=== PATIENT | female | born 1975 | race Two or more races ===

== ENCOUNTER 2024-07-22 06:45 | Day surgery (SDC) | payer MEDICAID, SELFPAY ==
[2024-07-20 14:15] LABS: HCG Qualitative,Urine Negative
[2024-07-21 13:33] VITALS: BMI 22.6
[2024-07-22] VITALS (10 sets, daily range): BP systolic 97–133; BP diastolic 55–80; PULSE 57–81; RESP 13–22; TEMP 36.2–36.7; O2SAT 96–100; BMI 21.7
[2024-07-22] MEDS: SODIUM CHLORIDE 0.9% 500 ML 500 ML 125 ML IV (07:26)
[2024-07-22] MEDS: DiphenhydrAMINE INJ 50 MG/ML VIAL 25 MG IV (07:27)
[2024-07-22] MEDS: fentaNYL CIT INJ 50 mCg/ML AMP 2ML (ASD USE ONLY) IV (07:28)
[2024-07-22] MEDS: LIDOCAINE JELLY 2% (Urojet) 10 ML TUBE TOP (07:30)
[2024-07-22] MEDS: MIDAZOLAM INJ 1 MG/ML VIAL 2 ML (ASD USE ONLY) 2 MG IV (07:31)
[2024-07-22] MEDS: ONDANSETRON INJ 2 MG/ML INJ 2 ML 4 MG IV (07:47)
== END 2024-07-22 08:40 | disposition home or self-care (01) ==
PROVIDERS: PCP Family Medicine; Referring Provider Surgery; Visit Provider Surgery
PROC: 0DBE8ZX Excision of Large Intestine, Via Natural or Artificial Opening Endoscopic, Diagnostic (ICD-10-PCS; CPT 45380; principal; 2024-07-22 07:30)
DX: D12.0 Benign neoplasm of cecum (principal); D12.2 Benign neoplasm of ascending colon; K64.1 Second degree hemorrhoids; K64.4 Residual hemorrhoidal skin tags; K57.31 Diverticulosis of large intestine without perforation or abscess with bleeding
CPT/HCPCS: 45385; 45380; 81025; A4649; J1200; J2250; J2405; J3010; J7040